=== PATIENT | female | born 1960 | race Caucasian/White ===

== ENCOUNTER 2017-08-29 08:31 | Emergency (ER) | payer BC ==
[~2017-08-29] VITALS: Ht 157.5 cm; Wt 86.5 kg
[~2017-08-29 08:31] MED LIST: ACET1TAB84 PO; ADVIN25/60 INH; ATEN-173 PO; ATV1 PO; CMD5 PO; DRON400T PO; LISI-787 PO; LVNIS80 SQ; NCDT21 TD; NTRGSL/4 UT; RXC5 PO
[2017-08-29 08:41] VITALS: TEMP 36.5; Ht 157.5 cm; Wt 86.5 kg
[2017-08-29] MEDS ORDERED: WARF3TAB PO (09:25)
[2017-08-29] MEDS ORDERED: OPTIRAY 320 IV PRN (09:30)
[2017-08-29 09:42] LABS: BASO % 0.2 %; BASO ABS # 0.01 K/uL (0-0.2); COMPLETE YES; EOS % 0.5 %; IG% 0.2 %; LYMPH % 22.4 %; LYMPH ABS # 1.25 K/uL (1.2-3.4); MEAN CELL VOLUME 89.3 fL (80-100); MEAN CORPUSCULAR HEMOGLOBIN 30.4 pg (25-34); MEAN PLATELET VOLUME 8.3 fL (7.4-10.4); MONO % 7.9 %; NEUT % 68.8 %; PLATELET COUNT 193 K/uL (130-400); RED BLOOD COUNT 4.48 M/uL (4.2-5.4); WHITE BLOOD COUNT 5.59 K/uL (4.8-10.8)
[2017-08-29 09:51] LABS: INR 2.9 (0.9-1.1); PARTIAL THROMBOPLASTIN RATIO 1.4; PROTHROMBIN TIME (PATIENT) 32.1 SECONDS (9.0-12.0)
[2017-08-29 09:59] LABS: BUN/CREATININE RATIO 16.2 (10-20); CALCIUM 9.1 mg/dl (8.5-10.1); CREATININE 0.67 mg/dl (0.60-1.20); POTASSIUM 4.5 mmol/L (3.5-5.1)
[2017-08-29] MEDS ORDERED: ACETAMINOPHEN IV 100 ML IV STA (10:55)
[2017-08-29 12:00] LABS: MANUAL MICROSCOPIC REQUIRED? NO; REVIEW REQ? NO; URINE APPEARANCE CLEAR (CLEAR); URINE BILIRUBIN NEG (NEG); URINE COLOR YELLOW; URINE NITRITE NEG (NEG); URINE SPECIFIC GRAVITY 1.009 (1.000-1.030); UROBILINOGEN NEG (NEG)
--- NOTE | 2017-08-29 12:34 | DIAGNOSTIC IMAGING REPORT ---
CT LUMBAR SPINE WITH CT DOSE: 632.40 mGycm CLINICAL HISTORY: Trauma. Hematoma. Back pain. Patient on Coumadin. History of prior lumbar disc surgery. TECHNIQUE: The patient was scanned in a dynamic helical fashion following administration 91 cc of Optiray 320. Sagittal and coronal reformatted images were acquired. A dose lowering technique was utilized adhering to the principles of ALARA. COMPARISON STUDY: None. FINDINGS: There are postsurgical changes of an L4-5 discectomy and interbody fusion. There are postlaminectomy changes. There are postsurgical changes of posterior spinal fusion with pedicle screws at the L4 and L5 levels. No acute fractures or traumatic subluxations are visualized. There is an L3-4 disc bulge with mild ligamentous hypertrophy and mild to moderate spinal stenosis. IMPRESSION: 1. No evidence of acute fracture or traumatic subluxation 2. Postsurgical changes at the L4-5 level 3. L3-4 disc bulge with mild to moderate spinal stenosis. Electronically signed by: Pancho Beyer M.D. 08/29/2017 12:31 PM Dictated Date/Time: 08/29/2017 12:20 PM
[2017-08-29 12:50] VITALS: O2SAT 99
--- NOTE | 2017-08-29 13:44 | EMERGENCY ROOM VISIT NOTE ---
History First contact with patient: 08:52 Chief Complaint: BACK PAIN Stated Complaint: LOWER BACK History of Present Illness The patient is a 56 year old female who presents to the Emergency Room with complaints of low back pain after falling down 4 steps this morning. She states that she slipped while going down the steps and landed directly on her lower back. She is concerned because she has a history of back surgery [address] Roberson, she reports "they replace of disks in my back." She states that she has had some intermittent tingling down her right leg and severe pain in her middle lower back the fall. She states she has been able to ambulate, but this greatly increases her pain. She describes the pain as constant, severe and grabbing, worse with movement, better with rest, 10/10. She states that she did not take any medications for the pain prior to arrival. She is on Coumadin for history of DVT and PE. She denies any numbness, weakness in the legs, saddle paresthesias, bowel or bladder dysfunction, abdominal pain, blood in her urine. She states she did not hit her head or lose consciousness, she denies any upper back or neck pain. Review of Systems A complete 10 point review of systems was reviewed with the patient with pertinent positives and negatives as per history of present illness. All else were negative. Past Medical/Surgical History Medical Problems: (1) Lumbar stenosis with neurogenic claudication (2) Pulmonary embolism Social History Smoking Status: Current Every Day Smoker Drug Use: none Marital Status: Housing Status: lives with family Current/Historical Medications Scheduled Atenolol (Tenormin), 1 TAB PO QAM Dronedarone Hcl (Multaq), 1 TAB PO BID Lisinopril/Hctz (Zestoretic 20MG/12.5MG), 1 TAB PO QAM Nitroglycerin (Nitrostat), 0.4 MG UT PRN Warfarin Sodium (Coumadin), 3 MG PO QPM Scheduled PRN Fluticasone Prop/Salmeterol (Advair Diskus 250/50 60 Dose), 1 PUFF INH TID PRN for uri symptoms Hydrocodone/Acetaminophen 5MG/325MG ([place] 5MG/325MG), 1 TAB PO Q6H PRN for Pain Allergies Coded Allergies: Penicillins (Verified Allergy, Unknown, HIVES, 04/23/16) Physical Exam Vital Signs Date Time Temp Pulse Resp B/P (MAP) Pulse Ox O2 Delivery O2 Flow Rate FiO2 08/29/17 14:56 62 18 142/74 98 Room Air 08/29/17 12:51 60 08/29/17 12:50 63 17 133/70 99 Room Air 08/29/17 12:50 99 Room Air 08/29/17 10:45 61 16 147/84 97 Room Air 08/29/17 08:41 36.5 65 20 180/89 96 Room Air Physical Exam CONSTITUTIONAL: No acute distress, but does appear to be in pain. Well appearing and well nourished. Alert and oriented X 4 with normal affect. HEENT: Normocephalic, atraumatic. Pupils equal, round and reactive to light, EOMI. TMs normal. Pharynx normal. NECK: Supple, full active range of motion without discomfort. RESPIRATORY: Clear to auscultation bilaterally with no wheezing, crackles, rhonchi or stridor. Equal expansion bilaterally. CARDIOVASCULAR: Regular rate and rhythm with no murmurs, rubs or gallops. Normal peripheral perfusion. No edema. GASTROINTESTINAL: Soft, nontender, nondistended. Bowel sounds present in all quadrants. BACK: There is midline tenderness of the entire lumbar spine, with bilateral paraspinous muscle tenderness to palpation. There are no step-offs or crepitus. No ecchymosis, abrasions, swelling to the lower back. MUSCULOSKELETAL: Full range of motion of all joints without discomfort. INTEGUMENTARY: No rash or other significant dermatologic conditions noted. NEUROLOGIC: Cranial nerves II-XII grossly intact. No focal neurologic deficits noted. Normal/equal reflexes bilaterally of the lower extremities. Normal strength, normal sensation, normal gait, normal balance. Medical Decision & Procedures ER Provider Diagnostic Interpretation: CT LUMBAR SPINE WITH CT DOSE: 632.40 mGycm CLINICAL HISTORY: Trauma. Hematoma. Back pain. Patient on Coumadin. History of prior lumbar disc surgery. TECHNIQUE: The patient was scanned in a dynamic helical fashion following administration 91 cc of Optiray 320. Sagittal and coronal reformatted images were acquired. A dose lowering technique was utilized adhering to the principles of ALARA. COMPARISON STUDY: None. FINDINGS: There are postsurgical changes of an L4-5 discectomy and interbody fusion. There are postlaminectomy changes. There are postsurgical changes of posterior spinal fusion with pedicle screws at the L4 and L5 levels. No acute fractures or traumatic subluxations are visualized. There is an L3-4 disc bulge with mild ligamentous hypertrophy and mild to moderate spinal stenosis. IMPRESSION: 1. No evidence of acute fracture or traumatic subluxation 2. Postsurgical changes at the L4-5 level 3. L3-4 disc bulge with mild to moderate spinal stenosis. Laboratory Results 08/29/17 09:30 Red Blood Count 4.48, Mean Corpuscular Volume 89.3, Mean Corpuscular Hemoglobin 30.4, Mean Corpuscular Hemoglobin Concent 34.0, Mean Platelet Volume 8.3, Neutrophils (%) (Auto) 68.8, Lymphocytes (%) (Auto) 22.4, Monocytes (%) (Auto) 7.9, Eosinophils (%) (Auto) 0.5, Basophils (%) (Auto) 0.2, Neutrophils # (Auto) 3.85, Lymphocytes # (Auto) 1.25, Monocytes # (Auto) 0.44, Eosinophils # (Auto) 0.03, Basophils # (Auto) 0.01 08/29/17 09:30 Test 08/29/17 09:27 08/29/17 09:30 08/29/17 11:50 Bedside Glucose 109 mg/dl (70-90) White Blood Count 5.59 K/uL (4.8-10.8) Red Blood Count 4.48 M/uL (4.2-5.4) Hemoglobin 13.6 g/dL (12.0-16.0) Hematocrit 40.0 % (37-47) Mean Corpuscular Volume 89.3 fL (80-100) Mean Corpuscular Hemoglobin 30.4 pg (25-34) Mean Corpuscular Hemoglobin Concent 34.0 g/dl (32-36) Platelet Count 193 K/uL (130-400) Mean Platelet Volume 8.3 fL (7.4-10.4) Neutrophils (%) (Auto) 68.8 % Lymphocytes (%) (Auto) 22.4 % Monocytes (%) (Auto) 7.9 % Eosinophils (%) (Auto) 0.5 % Basophils (%) (Auto) 0.2 % Neutrophils # (Auto) 3.85 K/uL (1.4-6.5) Lymphocytes # (Auto) 1.25 K/uL (1.2-3.4) Monocytes # (Auto) 0.44 K/uL (0.11-0.59) Eosinophils # (Auto) 0.03 K/uL (0-0.5) Basophils # (Auto) 0.01 K/uL (0-0.2) RDW Standard Deviation 45.3 fL (36.4-46.3) RDW Coefficient of Variation 13.8 % (11.5-14.5) Immature Granulocyte % (Auto) 0.2 % Immature Granulocyte # (Auto) 0.01 K/uL (0.00-0.02) Prothrombin Time 32.1 SECONDS (9.0-12.0) Prothromb Time International Ratio 2.9 (0.9-1.1) Activated Partial Thromboplast Time 35.9 SECONDS (21.0-31.0) Partial Thromboplastin Ratio 1.4 Anion Gap 5.0 mmol/L (3-11) Est Creatinine Clear Calc Drug Dose 95.7 ml/min Estimated GFR () 113.9 Estimated GFR (Non- 98.3 BUN/Creatinine Ratio 16.2 (10-20) Calcium Level 9.1 mg/dl (8.5-10.1) Urine Color YELLOW Urine Appearance CLEAR (CLEAR) Urine pH 7.0 (4.5-7.5) Urine Specific [place] 1.009 (1.000-1.030) Urine Protein NEG (NEG) Urine Glucose (UA) NEG (NEG) Urine Ketones NEG (NEG) Urine Occult Blood 2+ (NEG) Urine Nitrite NEG (NEG) Urine Bilirubin NEG (NEG) Urine Urobilinogen NEG (NEG) Urine Leukocyte Esterase NEG (NEG) Urine WBC (Auto) 0 /hpf (0-5) Urine RBC (Auto) 10-30 /hpf (0-4) Urine Hyaline Casts (Auto) 0 /lpf (0-5) Urine Epithelial Cells (Auto) 5-10 /lpf (0-5) Urine Bacteria (Auto) NEG (NEG) Medications Administered Medications (Trade) Dose Ordered Sig/Julia Route Start Time Stop Time Status Last Admin Dose Admin Acetaminophen 100 ml @ 400 mls/hr NOW STAT IV 08/29/17 10:55 08/29/17 11:09 DC 08/29/17 11:26 400 MLS/HR Acetaminophen/ Hydrocodone Bitart ([place] 5/325 Tab) 1 tab NOW STAT PO 08/29/17 15:05 08/29/17 15:13 DC 08/29/17 15:05 1 TAB Medical Decision CC: Patient presenting with complaint of back pain, fall Interpretation of Labs: No leukocytosis, no anemia, no significant electrolyte abnormalities, normal renal function, INR therapeutic. UA negative. Differential Diagnosis: Includes, but not limited to contusion, hematoma, abrasion, musculoskeletal sprain/strain, lumbar spine fracture, subluxation, disc herniation, among others. Medication Reconciliation: I attest that I have personally reviewed the patient' s current medication list. Vital signs review: I reviewed the patient's vital signs and interpret them as follows: T: Afebrile; BP: Hypertensive; HR: Within normal limits; RR: Within normal limits; Pulse Ox: Within normal limits on room air. Blood pressure screening: The patient was found to have an elevated blood pressure and was referred to their primary doctor for recheck and further treatment. Summary: Patient was evaluated at bedside, history of physical exam performed. Patient is alert and in no acute distress, but does appear to be in some pain especially with movement. Patient's neurologic exam is intact with no focal deficits. No weakness or sensory deficits noted in the lower extremities and no red flag symptoms concerning for cauda equina. There is midline tenderness of the lumbar spine and paraspinous muscle tenderness. Orders were placed at bedside for basic labs, urine dip, IV Tylenol for pain, CT lumbar spine with IV contrast to evaluate for trauma. Patient discussed with Dr. Beyer, who agrees with my assessment and plan. Labs reviewed as above, no significant abnormalities. CT imaging reveals no acute fracture or other acute injury, there is some mild disc bulging which may or may not be related to the patient's injury. The patient reports her pain is greatly improved after the Tylenol. I did encourage the patient to follow-up with her PCP or with her ortho-spine doctor, she verbalized understanding. I also instructed the patient on return precautions should her symptoms worsen, she verbalized understanding. Patient was discharged home in stable condition and ambulatory. [place] Drug Monitoring Program Search Results: patient reviewed within database, no issues identified Impression Primary Impression: Strain of lumbar region Additional Impression: Contusion of lower back Departure Information Dispostion Home / Self-Care Condition GOOD Prescriptions Hydrocodone/Acetaminophen 5MG/325MG ([place] 5MG/325MG) Tab 1 TAB PO Q6H Y for Pain, #6 TAB PRN PAIN Prov: Ketty Saeed, JOHN 08/29/17 Referrals Alejandro Maradiaga M.D. (PCP) Patient Instructions ED Exercises Lumbar Muscles, ED Low Back Pain Injury, [facility] Additional Instructions Take it easy for the next few days, no strenuous activity, heavy lifting, or bending/twisting motions, to allow your back to rest. Apply ice to the lower back for the next 2-3 days, after that you may apply heat to the area. After heat, you may do gentle stretching and massage to the low back. Mobic as prescribed once a day for the next two weeks to treat your pain and inflammation in your back. Do not take other NSAIDs while you are taking this medication. Valium muscle relaxer as prescribed, as needed for muscle tightness and spasms. This may make you drowsy. Do not drive or drink alcohol while taking. Follow up with your PCP in the next few days for further management. You may benefit from physical therapy. Please return to the ER if any problems with bowel or bladder function, numbness in your groin, high fevers, severe abdominal pain or worsening back pain, or if loss of feeling/movement of legs. Work Instructions Return To Work: 2 days Problem Qualifiers Primary Impression: Strain of lumbar region Encounter type: initial encounter Qualified Codes: S39.012A - Strain of muscle, fascia and tendon of lower back, initial encounter Additional Impression: Contusion of lower back Encounter type: initial encounter Qualified Codes: S30.0XXA - Contusion of lower back and pelvis, initial encounter
[2017-08-29] MEDS ORDERED: HYDR-5688 PO (14:53)
[2017-08-29 14:56] VITALS: BP 142/74; PULSE 62; O2SAT 98
[2017-08-29] MEDS ORDERED: HYDROCODONE/ACETAMOPHEN 5/325MG TAB PO STA (15:05)
== END 2017-08-29 15:10 | disposition home or self-care (01) ==
LOC: C.EDB 08:32 → C.EDA 15:10
DX: S39.012A Strain of muscle, fascia and tendon of lower back, initial encounter (principal); S30.0XXA Contusion of lower back and pelvis, initial encounter; W10.9XXA Fall (on) (from) unspecified stairs and steps, initial encounter; M51.26 Other intervertebral disc displacement, lumbar region; M48.06 Spinal stenosis, lumbar region; F17.200 Nicotine dependence, unspecified, uncomplicated; Z86.718 Personal history of other venous thrombosis and embolism; Z86.711 Personal history of pulmonary embolism; Z79.01 Long term (current) use of anticoagulants

== ENCOUNTER 2021-06-20 09:53 | Inpatient (IN) ==
--- NOTE | 2021-06-01 09:50 | PAT Medication Instructions ---
Medication Instructions Date of Service June 01, 2021 Home Medications acetaminophen [Tylenol Arthritis] 1,300 mg PO Q12H PRN albuterol sulfate 2 puff INHALATION Q6H PRN aspirin [Aspir-81] 81 mg PO QAM dronedarone [Multaq] 400 mg PO BID losartan 50 mg PO QAM metoprolol succinate [Toprol XL] 12.5 mg PO QAM nitroglycerin [Nitrostat] 0.4 mg SUBLINGUAL umeclidinium-vilanterol [Anoro Ellipta] 1 inh INHALATION HS warfarin [Jantoven] 3 - 4.5 mg PO UD Continue as directed nitroglycerin [Nitrostat] 0.4 mg SUBLINGUAL (if needed) ASK your prescriber and surgeon warfarin [Jantoven] 3 - 4.5 mg PO UD aspirin [Aspir-81] 81 mg PO QAM DO NOT take the morning of surgery losartan 50 mg PO QAM Take morning of surgery With a small sip of water, OTHERWISE NOTHING TO EAT OR DRINK AFTER MIDNIGHT: acetaminophen [Tylenol Arthritis] 1,300 mg PO Q12H PRN (okay to take up to 4 hours prior to surgery if needed) albuterol sulfate 2 puff INHALATION Q6H PRN (use if needed; please bring rescue inhaler with you to hospital day of surgery if possible) dronedarone [Multaq] 400 mg PO BID metoprolol succinate [Toprol XL] 12.5 mg PO QAM Take evening before surgery acetaminophen [Tylenol Arthritis] 1,300 mg PO Q12H PRN (if needed) albuterol sulfate 2 puff INHALATION Q6H PRN (if needed) dronedarone [Multaq] 400 mg PO BID umeclidinium-vilanterol [Anoro Ellipta] 1 inh INHALATION HS Other Notes If you have any questions please call us at [phone] or [phone] or [phone] or [phone]
--- NOTE | 2021-06-06 15:48 | Anesthesiology Consultation ---
Date of Service June 06, 2021 Assessment & Plan (1) Encounter for pre-operative examination: - COVID screening: Per assessment on 06/06: Travel screen negative, no known COVID-19 positive contacts or current COVID-19 related symptoms. Patient vaccinated. Surgeon arranging preop COVID testing. Awaiting results. - Cardiology office visit (03/14/21): "She has been doing well from a cardiac standpoint. she reports functional class II shortness of breath and fatigue.. Continue current medications." F/U 6 months recommended. - Check coags AM DOS (warfarin instructions per surgeon/prescriber) Chart Review Chart Review: Acceptable Risk for Surgery (pending preop testing (labs, EKG, CXR)) and Patient seen in Pre Admission Testing Teaching & Discussion Pre-Anesthesia Teaching/Discussion Notes: Instructed NPO after midnight before surgery,except medications with 15 cc of water. Medication instructions provided according to the PAT guidelines. History Surgery Operation Date: 06/20/21 10:35 Proposed Procedures p L2-L4 Decompression Fusion, L4-L5 Hardware Removal, Spinal Cord Monitoring - Otoniel Roberson DO Height/Weight Height: 5 ft 2 in Weight: 89.4 kg Allergies Allergy/AdvReac Type Severity Reaction Status Date / Time Penicillins Allergy Unknown Hives Verified 06/05/21 08:46 Medications Home Medications Medication Instructions Recorded Confirmed Last Taken acetaminophen [Tylenol Arthritis] 1,300 mg PO Q12H PRN 05/31/21 05/31/21 Unknown albuterol sulfate 2 puff INHALATION Q6H PRN 05/31/21 05/31/21 Unknown aspirin [Aspir-81] 81 mg PO QAM 05/31/21 05/31/21 Unknown dronedarone [Multaq] 400 mg PO BID 05/31/21 05/31/21 Unknown losartan 50 mg PO QAM 05/31/21 05/31/21 Unknown metoprolol succinate [Toprol XL] 12.5 mg PO QAM 05/31/21 05/31/21 Unknown nitroglycerin [Nitrostat] 0.4 mg SUBLINGUAL 05/31/21 Unknown umeclidinium-vilanterol [Anoro 1 inh INHALATION HS 05/31/21 05/31/21 Unknown Ellipta] warfarin [Jantoven] 3 - 4.5 mg PO UD 05/31/21 05/31/21 Unknown Past Medical History Medical History CAD (coronary artery disease) 2006 (stent x1), 2008 (stent x1) Cancer Skin (SCC) Chronic back pain Radiation to b/l hips/legs Chronic obstructive pulmonary disease DVT (deep venous thrombosis) 2016 Mild aortic stenosis Mild aortic stenosis (BETTY 1.47 cm, MG 10 mmHg) per 07/2020 echo Myocardial Infarction 2006, Follows with Dr. Hirsch Obesity Pulmonary embolism Post-op back surgery (2016), on warfarin since Exercise / Class Metabolic Activity II 4-5 Yardwork/Stairs/Walk up hill (one FS (no CP, no SOB)) Past Family History Family History Mother Family history of diabetes mellitus Past Surgical History Surgical History Fusion of spine 2015 History of cardiac cath 2006 (stent x1), 2008 (stent x1), 2014 (no stents), 2017 (no stents) History of section History of hysterectomy + USO History of laparoscopy Multiple (for endometriosis) History of neck surgery x2 Past Anesthesia History No Hx of Anesthesia Complications and No Family Hx of Anesthesia Complications History of PONV No Hx of PONV and No Hx of Motion Sickness Social History Smoking Status: Current every day smoker Smoking cigarettes per day: 10 cigs/day Do You Dip or Chew Tobacco: No Hx Alcohol Use: No Hx Substance Use: No Review of Systems Patient denies chest pain, shortness of breath, dyspnea on exertion, fever, chills, cough, wheezing, palpitations. Physical Exam Vital Signs VITALS BP 147/84 P 84 TEMP 97.9 SP02 97%RA RESP 16 PHYSICAL Mildly decreased cervical extension range of motion. Full TMJ range of motion. TMD 3 finger breaths Mallampati Score 2 Dentition: 2 missing molars Lungs: clear throughout to auscultation Cardiac: regular rate and rhythm, II/ systolic murmur Spine: normal Carotid arteries: negative bruit Extremities: no edema Testing Echocardiogram Date: 07/21/20 EF EF 55%. Moderate RVD. Mild LAD. Moderate RAD. Mild aortic stenosis (BETTY 1.47 cm, MG 10 mmHg). Mild to moderate MR. Moderate TR. Moderately increased PASP. Physiologic MS. Cardiac Catheterization Date: 02/24/18 Coronary artery disease with patent stents in the left circumflex coronary artery and right coronary artery. 50% stenosis of the ostium of the very small AV groove branch. Elevated LVEDP. Normal LV ejection fraction. No gradient across the aortic valve by pullback technique. Medical management and risk factor modification recommended.
[~2021-06-20 09:53] MED LIST changes: -ACET1TAB84 PO; +ACETAMINOPHEN 500 MG TAB PO SCH; -ADVIN25/60 INH; -ATEN-173 PO; -ATV1 PO; +CLINDAMYCIN 600 MG/54 ML BAG IV SCH; -CMD5 PO; +CeleBREX 200 MG CAP PO SCH; -DRON400T PO; +GABAPENTIN 600 MG DOSE PO SCH; -LISI-787 PO; +LR 15ML/HR IV SCH; -LVNIS80 SQ; -NCDT21 TD; -NTRGSL/4 UT; -RXC5 PO
[2021-06-20] MEDS ORDERED: ROCURONIUM BROMIDE 10 MG/ML 5 ML VIAL IV ONE (10:22)
[2021-06-20] MEDS ORDERED: MIDAZOLAM HCL 1 MG/ML 2ML VIAL ONE (10:22)
[2021-06-20] MEDS ORDERED: PROPOFOL IV EMULSION 10 MG/ML 20 ML VIAL IV ONE (10:22)
[2021-06-20] MEDS ORDERED: LIDOCAINE 2% 2 ML VIAL/AMP(20MG/ML) INFIL ONE (10:22)
[2021-06-20] MEDS ORDERED: fentaNYL citrate 100 MCG/2 ML VIAL ONE (10:22)
[2021-06-20 10:34] LABS: Partial Thromboplastin Ratio 0.9; Partial Thromboplastin Time 24.9 Seconds (21.0-31.0); Prothrombin Time 10.2 Seconds (9.0-12.0)
[2021-06-20] MEDS ORDERED: ATROPINE SULFATE 0.1 MG/ML 10ML SYR IV PRN (11:39)
[2021-06-20] MEDS ORDERED: fentaNYL citrate 100 MCG/2 ML VIAL IV PRN (11:39)
[2021-06-20] MEDS ORDERED: ONDANSETRON INJ 2 MG/ML 2 ML VIAL IV PRN ×2 (11:39→16:02)
[2021-06-20] MEDS ORDERED: ePHEDrine sulfate 50 MG/ML AMP IV PRN (11:39)
[2021-06-20] MEDS ORDERED: HYDROmorphone INJ 2 MG/ML SYR/VIAL IV PRN (11:39)
--- NOTE | 2021-06-20 11:48 | History & Physical Bridge Note ---
Date of Service June 20, 2021 History & Physical Bridge Note I have examined the patient, reviewed the History & Physical and in the interval since the performance of the History & Physical I have noted the following changes of clinical significance: no changes noted
--- NOTE | 2021-06-20 11:49 | History & Physical Report ---
Date of Service June 20, 2021 Assessment & Plan (1) Lumbar stenosis with neurogenic claudication: Plan: L2-L4 decompression fusion, L4-L5 hardware removal History of Present Illness Chief Complaint: Back and leg pain Primary Care Provider: Alejandro Terrazasmaki 6-year-old female known to me the presents with a cough persistent back and leg pain. Failing course of nonoperative care is here for surgical invention. Allergies Allergy/AdvReac Type Severity Reaction Status Date / Time Penicillins Allergy Unknown Hives Verified 06/05/21 08:46 Home Medications Medication Instructions Recorded Confirmed Type acetaminophen 650 mg 1,300 mg PO Q12H PRN 05/31/21 06/20/21 History tablet,extended release albuterol sulfate 90 mcg/actuation 2 puff INHALATION Q6H PRN 05/31/21 06/20/21 History aerosol inhaler aspirin 81 mg tablet,delayed 81 mg PO QAM 05/31/21 06/20/21 History release dronedarone 400 mg tablet (Multaq) 400 mg PO BID 05/31/21 06/20/21 History losartan 50 mg tablet 50 mg PO QAM 05/31/21 06/20/21 History metoprolol succinate 25 mg 12.5 mg PO QAM 05/31/21 06/20/21 History tablet,extended release 24 hr (Toprol XL) nitroglycerin 0.4 mg sublingual 0.4 mg SUBLINGUAL UNKNOWN 05/31/21 06/20/21 History tablet (Nitrostat) umeclidinium 62.5 mcg-vilanterol 1 inh INHALATION HS 05/31/21 06/20/21 History 25 mcg/actuation powdr for inhalation (Anoro Ellipta) warfarin 3 mg tablet (Jantoven) 3 - 4.5 mg PO UD 05/31/21 06/20/21 History Past Med/Surg History Medical History CAD (coronary artery disease) 2006 (stent x1), 2008 (stent x1) Cancer Skin (SCC) Chronic back pain Radiation to b/l hips/legs Chronic obstructive pulmonary disease DVT (deep venous thrombosis) 2015 Mild aortic stenosis Mild aortic stenosis (BETTY 1.47 cm, MG 10 mmHg) per 07/2020 echo Myocardial Infarction 2006, Follows with Dr. Hirsch Obesity Pulmonary embolism Post-op back surgery (2016), on warfarin since Surgical History Fusion of spine 2016 History of cardiac cath 2006 (stent x1), 2008 (stent x1), 2014 (no stents), 2018 (no stents) History of section History of hysterectomy + USO History of laparoscopy Multiple (for endometriosis) History of neck surgery x2 Family History Mother Family history of diabetes mellitus Social History (Updated 05/31/21 @ 14:15 by Brina Hope, RN) Smoking Status: Current every day smoker Cigarettes Per Day: 10 cigs/day; Second Hand Exposure: Yes (SPOUSE SMOKES); Do You Dip or Chew Tobacco: No; Hx Alcohol Use: No Hx Substance Use: No Preferred Language: Greenlandic Communication Ability: Effective Sight Effects Specialist Required: No Beliefs That Will Affect Care: None Current Living Situation: Spouse current occupational status: employed current occupation: [employer] Other Information That Helps Us Care for You: No Feels Safe at Home: Yes Safety Concerns: Feels Safe At This Time Assistive Devices: Glasses Physical Exam Physical Exam: Patient is alert and oriented Heart regular rhythm Lungs clear to auscultation Results & Data ([facility]) Vital Signs (Past 12 Hours) Vital Signs Temp Pulse Resp BP Pulse Ox 06/20/21 10:21 36.7 C 69 18 138/72 97
[2021-06-20] MEDS ORDERED: BUPIVACAINE/EPINEPHRINE 0.5% MPF 1:200,000 30 ML VIAL ONE (12:10)
[2021-06-20] MEDS ORDERED: ONDANSETRON INJ 2 MG/ML 2 ML VIAL ONE (12:54)
[2021-06-20] MEDS ORDERED: DEXAMETHASONE SOD INJ 4 MG/ML VIAL ONE (12:54)
[2021-06-20] MEDS ORDERED: HYDROmorphone INJ 2 MG/ML SYR/VIAL ONE (12:55)
[2021-06-20] MEDS ORDERED: FLOSEAL HEMOSTATIC MATRIX 10ML TOP ONE (13:20)
[2021-06-20] MEDS ORDERED: PHENYLEPHRINE 100MCG/ML 5ML SYR ONE (13:33)
[2021-06-20] MEDS ORDERED: ePHEDrine sulfate 50 MG/ML AMP ONE (13:33)
[2021-06-20] MEDS ORDERED: GLYCOPYRROLATE 0.2 MG/ML VIAL ONE (14:16)
[2021-06-20] MEDS ORDERED: NEOSTIGMINE METHYLSULFATE 1 MG/ML 10ML VIAL ONE (14:16)
--- NOTE | 2021-06-20 14:22 | Operative Report ---
Post Operative Report Pre & Post Diagnosis Operation Date: 06/20/21 11:35 Pre-Op Diagnosis: Lumbar stenosis with neurogenic claudication Post-Op Diagnosis: Lumbar stenosis with neurogenic claudication I identified the patient and participated in the time-out.: Yes Procedure Operation Date: 06/20/21 11:35 Actual Procedures #1 removal of posterior instrumentation L4-5 per #2 exploration of fusion L4-5. #3 lumbar decompression with bilateral medial facetectomies and foraminotomies L2-3 and L3-4. #4 posterior spinal fusion L2-3 L3-4. #5 posterior instr umentation L2-3 L3-4. #6 interbody fusion L3-L4. #7 placement peek cage 12 x 22 mm at L3-L4. #8 placement locally harvested morselized autograft in the posterior lateral gutters. #9 placement infuse collagen sponge, master graft in the posterior lateral gutters and I factor in the interbody space. Surgeon Otoniel Roberson, Reserve Operator Lexie Ramos Estimated Blood Loss 250 Findings See Below The patient is 5 foot 2 weighing over 87 kg with a BMI in excess of 35. Patient brought habitus did contribute to significant technical difficulty requiring her deepest retractors and longest instruments in order to perform her procedure. This added at least 50% increase the operative time. Specimens None Indications This is a 6-year-old female [facility] above-mentioned diagnosis after failing course of nonoperative care she is here for the above- mentioned procedure. Description of Procedure Patient was met with identified informed consent obtained. Patient was then taken to the operative suite underwent a patient placed in prone position the [place] table top Dani frame. All bony prominences well-padded eyes inspected to ensure no external pressure placed upon the. This point lumbar spine was prepped and draped in a sterile fashion. Sharp dissection with the assistance of Bovie cautery performed down to and exposing the lamina and transverse processes of L2-L3-and the instrumentation at L4-L5 bilaterally. Then proceeded to move the hardware bilaterally at L4-L5 explore the fusion mass noting it to be mature and intact. Then performed a complete laminectomy of L2-3 and L2 from a caudal cephalad fashion including bilateral medial facetectomies and foraminot omies addressing severe spinal stenosis. Pedicle screws were then placed in L2-L3-L4 bilaterally with assistance of fluoroscopy and the proper sized mihir placed. By way of a transforaminal approach on the right a complete discectomy was performed endplates curetted to subcortical being bone and a 12 x 22 mm cage filled with I factor tapped in position. The rods and locked in final position bilaterally. The transverse processes of L2-L3-L4 burred to subcortically bone. Infuse collagen sponge master graft and local autograft was placed in the posterior gutters. 15 round JONH drain inserted. Incision was then closed with 1 Vicryl the fascia 2-0 Vicryl subcutaneously and 4 Monocryl for final skin closure. Steri-Strip sterile dressings placed. Patient was then taken to PACU stable condition. Please note spinal cord monitoring was utilized at the procedure no changes noted. Lastly Lexie Ramos was present at the entire surgery involved the patient positioning complex portions of the surgery and final skin closure. I attest to the content of the Intraoperative Record and any orders documented therein. Any exceptions are noted below.
--- NOTE | 2021-06-20 14:37 | Fluoroscopy Report ---
FL lumbar spine 2-3V CLINICAL HISTORY: L2-L4 DECOMPRESSION FUSION, L4-L5 HARDWARE REMOVAL COMPARISON STUDY: 04/23/2016 FLUOROSCOPY TIME: 18 seconds. NUMBER OF FLUOROSCOPIC IMAGES: 2 FINDINGS: 2 intraoperative fluoroscopic spot images are provided for interpretation. There is evidenc e for a prior L4-5 discectomy and interbody fusion. There is now evidence for an L3-4 discectomy and interbody fusion. The L5 pedicle screws have been removed. There are L2, L3, and L4 pedicle screws wi th adjoining spinal rods. On the AP view, there is evidence for surgical sponge at the operative site . The technologist notes that the surgeon is aware of this. IMPRESSION: 1. Intraoperative fluoroscopic spot images demonstrating an L2-4 spinal decompression and fusion ACT 112: Negative or not required by law. Electronically signed by: Pancho Beyer M.D. 06/20/2021 2:36 PM
--- NOTE | 2021-06-20 15:10 | Anesthesiology Progress Note ---
Date of Service June 20, 2021 Anesthesia Post Procedure Vital Signs Vital Signs: Temp Pulse Pulse Resp BP BP Pulse Ox 06/20/21 15:05 36.6 C 68 14 124/67 95 06/20/21 14:55 68 12 114/64 95 06/20/21 14:45 78 14 119/76 95 06/20/21 14:39 36.6 C 92 H 14 145/65 H 98 06/20/21 10:21 36.7 C 69 18 138/72 97 Pain Intensity Lower Back: Pain Intensity: 8 Transfer of Care Handoff Completed per policy Notes Mental Status: alert / awake / arousable and participated in evaluation Patient Amnestic to Procedure: Yes Nausea / Vomiting: adequately controlled Pain: adequately controlled Airway Patency, RR, SpO2: stable & adequate BP & HR: stable & adequate Hydration State: stable & adequate Anesthetic Complications: no major complications apparent and Pt Satisfied with anesthetic care
[2021-06-20] MEDS ORDERED: NALOXONE HCL 0.4 MG/1 ML VIAL/CARP IV PRN (16:02)
[2021-06-20] MEDS ORDERED: MAGNESIUM HYDROXIDE SUSP 30 ML UDC PO PRN (16:02)
[2021-06-20] MEDS ORDERED: LORazepam 0.5 MG TAB PO PRN (16:02)
[2021-06-20] MEDS ORDERED: LORazepam 0.5 MG/1 ML VIAL IV PRN (16:02)
[2021-06-20] MEDS ORDERED: NITROGLYCERIN SL 0.4 MG/TAB TAB SL PRN (16:02)
[2021-06-20] MEDS ORDERED: hydrOXYzine HCl 25 MG TAB PO PRN (16:02)
[2021-06-20] MEDS ORDERED: ACETAMINOPHEN 500 MG TAB PO PRN (16:02)
[2021-06-20] MEDS ORDERED: ALUMINUM/MAGNESIUM SUSP 30 ML UDC PO PRN (16:02)
[2021-06-20] MEDS ORDERED: HYDROmorphone INJ 1 MG/ML SYRINGE IV PRN (16:02)
[2021-06-20] MEDS ORDERED: ONDANSETRON 4 MG OD TAB PO PRN (16:02)
[2021-06-20] MEDS ORDERED: FAMOTIDINE 20 MG TAB PO PRN (16:02)
[2021-06-20] MEDS ORDERED: ACETAMINOPHEN 1,000 MG/100 ML VIAL IV PRN (16:02)
[2021-06-20] MEDS ORDERED: DO NOT ADMINISTER PNEUMOCOCCAL VACCINE PRN (16:02)
[2021-06-20] MEDS ORDERED: DO NOT ADMINISTER FLU VACCINE PRN (16:02)
[2021-06-20] MEDS ORDERED: PROMETHAZINE HCL 12.5 MG in SODIUM CHLORIDE 0.9% 50 ML IV PRN (16:02)
[2021-06-20] MEDS ORDERED: METOCLOPRAMIDE HCL INJ 5 MG/ML 2 ML VIAL IV PRN (16:02)
[2021-06-20] MEDS ORDERED: SOD PHOSPHATE/SOD BIPHOSPHATE ENEMA 132 ML BTL PR PRN (16:02)
[2021-06-20] MEDS ORDERED: diphenhydrAMINE Capsule 25 MG CAP PO PRN (16:02)
[2021-06-20] MEDS ORDERED: traMADol HCL 50 MG TABLET PO PRN (16:02)
[2021-06-20] MEDS ORDERED: HYDROmorphone INJ 0.5 MG/0.5 ML SYR IV PRN (16:02)
[2021-06-20] MEDS ORDERED: ALBUTEROL HFA 8 GM INHALER INH PRN (16:02)
[2021-06-20] MEDS: SODIUM CHLORIDE 0.9% 1000ML 1,000 ML IV SCH (17:23)
--- NOTE | 2021-06-20 17:30 | Hospitalist Consultation ---
Date of Consultation June 20, 2021 Assessment & Plan (1) Lumbar stenosis with neurogenic claudication: - Pain management, bowel regimen and DVT ppx per the primary team - PT/OT consults - Follow am CBC to monitor for acute blood loss - Holding coumadin (2) CAD (coronary artery disease): - S/p cardiac stenting, continue asa 81 mg daily, metoprolol succinate 12.5 mg daily, losartan 50 mg daily (3) Mild aortic stenosis: - Chronic, stable (4) Chronic obstructive pulmonary disease: - Continue Anoro Ellipta, albuterol prn - Encourage smoking cessation (5) Pulmonary embolism: - Hx of such following previous back surgery. Also with hx of DVT. Pt reports family with genetic clotting disorder but cannot confirm what it is. Reports needs for being on life long anticoagulation. She denies being formally tested for genetic clotting disorder. - Continue coumadin once ok from primary team standpoint. (6) Tobacco use: - Cessation encouraged. Pt brought home nicotine lozenges from home. Will ask pharmacy to verify and then can use prn for smoking cessation. Pt currently smokes 1/2 ppd, down from 1.5 ppd. (7) Obesity: - BMI of 35.4, encourage diet and exercise. DVT ppx: - teds, scds, baby aspirin CODE: Full code Dispo: From home, likely to remain in the hospital x 1-2 days Supervising Physician Co-Signing Physician Notes Attending addendum: The patient was seen and examined in medical floor She is a status post lumbar decompression fusion Complains of some pain and drowsiness from the medication Denies any other significant symptoms On examination Lying in bed comfortably. Hemodynamically stable Chestclear to auscultate bilaterally HeartS1-S2, 2/6 ESM over precordium Abdomenbenign CNSalert, awake and oriented x3 Extremitiesnegative for any edema Her preop labs and imaging studies reviewed Remains medically stable status post lumbar decompression fusion Her other medical condition remains stable Agree with assessment and plan as outlined above by Yuliana Hopkins History of Present Illness Reason for Consultation: Medical management Requesting Physician: Dr. Roberson Attending Physician: Otoniel Roberson, DO History of Present Illness This is a 60 yo F with PMhx of CAD with stents placed in 2006 and in 2008, COPD, DVT, mild aortic stnosis, VT in 2006, obesity with BMI of 35.4, and PE s/p back surgery in 2016 on chronic coumadin who presents for elective L4-L5 hardware removal and fusion, lumbar decompression with bilateral medial facetectomies and foraminotomies L2-3 and L3-L4 by Dr. Roberson on 06/20/21. Pt is doing well, her pain is moderate. She would like to eat dinner before taking any pain medication, so it doesn't upset her stomach. Last BM was today. She has tolerated liquids without difficulty. Pt notes having PE/DVT occur after her last back surgery 5 years ago, and is on coumadin because family has genetic disorder for clotting, although she has never been tested for such. Pt has coleen yarn at bedside to help keep stress level low. She denies any other acute complaints. Lives at home with . They are both attempting to quit smoking; pt has cut down to 1/2 ppd. Nicotine lozenges are at bedside and pt is requesting to use these during her stay here. Allergies Allergy/AdvReac Type Severity Reaction Status Date / Time Penicillins Allergy Unknown Hives Verified 06/05/21 08:46 Home Medications Medication Instructions Recorded Confirmed Type acetaminophen 650 mg 1,300 mg PO Q12H PRN 05/31/21 06/20/21 History tablet,extended release albuterol sulfate 90 mcg/actuation 2 puff INHALATION Q6H PRN 05/31/21 06/20/21 History aerosol inhaler aspirin 81 mg tablet,delayed 81 mg PO QAM 05/31/21 06/20/21 History release dronedarone 400 mg tablet (Multaq) 400 mg PO BID 05/31/21 06/20/21 History losartan 50 mg tablet 50 mg PO QAM 05/31/21 06/20/21 History metoprolol succinate 25 mg 12.5 mg PO QAM 05/31/21 06/20/21 History tablet,extended release 24 hr (Toprol XL) nitroglycerin 0.4 mg sublingual 0.4 mg SUBLINGUAL UNKNOWN 05/31/21 06/20/21 History tablet (Nitrostat) umeclidinium 62.5 mcg-vilanterol 1 inh INHALATION HS 05/31/21 06/20/21 History 25 mcg/actuation powdr for inhalation (Anoro Ellipta) warfarin 3 mg tablet (Jantoven) 3 - 4.5 mg PO UD 05/31/21 06/20/21 History Patient History Medical History (Updated 06/20/21 @ 17:35 by Yuliana Wright PA-C) CAD (coronary artery disease) 2006 (stent x1), 2008 (stent x1) Cancer Skin (SCC) Chronic back pain Radiation to b/l hips/legs Chronic obstructive pulmonary disease DVT (deep venous thrombosis) 2015 Mild aortic stenosis Mild aortic stenosis (BETTY 1.47 cm, MG 10 mmHg) per 07/2020 echo Myocardial Infarction 2006, Follows with Dr. Hirsch Obesity Pulmonary embolism Post-op back surgery (2015), on warfarin since Surgical History Fusion of spine 2015 History of cardiac cath 2006 (stent x1), 2008 (stent x1), 2014 (no stents), 2017 (no stents) History of section History of hysterectomy + USO History of laparoscopy Multiple (for endometriosis) History of neck surgery x2 Family History Mother Family history of diabetes mellitus Social History (Updated 05/31/21 @ 14:15 by Brina Hope RN) Smoking Status: Current every day smoker Cigarettes Per Day: 10 cigs/day; Second Hand Exposure: Yes (SPOUSE SMOKES); Do You Dip or Chew Tobacco: No; Hx Alcohol Use: No Hx Substance Use: No Preferred Language: Swiss Communication Ability: Effective Hand Bunch Maker Required: No Beliefs That Will Affect Care: None Current Living Situation: Spouse current occupational status: employed current occupation: [employer] Other Information That Helps Us Care for You: No Feels Safe at Home: Yes Safety Concerns: Feels Safe At This Time Assistive Devices: Glasses Review of Systems Review of Systems: Constitutional: No fever, sweats or chills Eyes: No diplopia, no worsening or blurred vision ENT: normal hearing, no trouble swallowing Respiratory: No cough, sputum, dyspnea at rest or on exertion Cardiovascular: No chest pain, tightness or palpitations Abdomen: No pain, nausea, vomiting, diarrhea or constipation Back: pain is mild, no numbness or tingling. Musculoskeletal: No joint pain, calf pain, swelling Neurologic: No weakness, numbness/tingling, or balance problems Psychiatric: No anxiety or depression Skin: No rash or itch Physical Exam Physical Exam: General: awake, alert, no apparent distress, obese, sitting up at edge of bed Head: Normocephalic, atraumatic ENT: PERRL, EOMI, no pharyngeal exudate, mucous membranes moist Chest: Clear to auscultation, on room air, no adventitious breath sounds Cardiac: Regular rate and rhythm, no murmur, no JVD, normal peripheral pulses, good capillary refill Abdominal: NABS x 4 quadrants, soft, nondistended, nontender to palpation, no rebound or guarding Back: Dressing c/d/i, JONH drain in place. : latif cath in place draining clear yellow urine Extremities: Normal inspection, no peripheral edema or erythema, calfs nontender to palpation Psych: Normal mood and affect Neuro: AAO x 3, strength intact bilaterally and rated 5/5, no motor deficits, speech is clear, no peripheral sensory deficits Results & Data Results & Data ([facility]) Vital Signs (Past 12 Hours) Vital Signs Temp Pulse Pulse Resp BP BP Pulse Ox 06/20/21 16:45 36.6 C 76 16 121/72 95 06/20/21 15:30 70 14 116/65 94 06/20/21 15:15 85 16 102/68 96 06/20/21 15:05 36.6 C 68 14 124/67 95 06/20/21 14:55 68 12 114/64 95 06/20/21 14:45 78 14 119/76 95 06/20/21 14:39 36.6 C 92 H 14 145/65 H 98 06/20/21 10:21 36.7 C 69 18 138/72 97
[2021-06-20] MEDS: DOCUSATE SODIUM/SENNA 50/8.6MG TAB PO SCH (20:18)
[2021-06-20] MEDS: UMECLIDINIUM/VILANTEROL 62.5/25MCG 7 PUFFS/INHALER INH SCH (20:18)
[2021-06-20] MEDS: DRONEDARONE HCL 400 MG TAB PO SCH (20:18)
[2021-06-20] MEDS: CLINDAMYCIN 600 MG in DEXTROSE 5% 50 ML IV SCH (20:21)
[2021-06-20] MEDS: oxyCODONE HCL IR 5 MG TAB (IMMEDIATE RELEASE) PO PRN (20:21)
[2021-06-21] MEDS: CLINDAMYCIN 600 MG in DEXTROSE 5% 50 ML IV SCH (03:03)
[2021-06-21] MEDS: POLYETHYLENE (MIRALAX) 17 GM PACK PO SCH ×3 (06:13→17:55)
[2021-06-21 07:24] LABS: Basophils # (auto) 0.01 K/uL (0-0.2); Basophils % (auto) 0.1 %; Hematocrit (blood only) 34.6 % (37-47); Hemoglobin 11.6 g/dL (12.0-16.0); Immature Granulocytes # (auto) 0.02 K/uL (0.00-0.02); Immature Granulocytes % (auto) 0.2 %; Lymphocytes # (auto) 1.15 K/uL (1.2-3.4); Lymphocytes % (auto) 10.8 %; Mean Corpuscular Hemoglobin 30.9 pg (25-34); Mean Corpuscular Hgb Conc 33.5 g/dL (32-36); Mean Platelet Volume 8.5 fL (7.4-10.4); Monocytes # (auto) 0.77 K/uL (0.11-0.59); Monocytes % (auto) 7.2 %; Neutrophils % (auto) 81.7 %; Platelet Count 198 K/uL (130-400); RDW Coefficient of Variation 13.4 % (11.5-14.5); RDW Standard Deviation 44.6 fL (36.4-46.3); Red Blood Count 3.76 M/uL (4.2-5.4); White Blood Count 10.65 K/uL (4.8-10.8)
[2021-06-21 08:01] LABS: BUN Creatinine Ratio 19.2 (10-20); Calcium 8.6 mg/dl (8.5-10.1); Creatinine Clr Calc Pharmacy 93.3 ml/min; Est GFR (African American) 111.3 ml/min; Potassium 4.8 mmol/L (3.5-5.1)
[2021-06-21] MEDS: oxyCODONE HCL IR 5 MG TAB (IMMEDIATE RELEASE) PO PRN ×2 (10:03→20:03)
[2021-06-21] MEDS: ASPIRIN 81 MG ECTAB PO SCH (10:05)
[2021-06-21] MEDS: LOSARTAN POTASSIUM 50 MG TAB PO SCH (10:05)
[2021-06-21] MEDS: DRONEDARONE HCL 400 MG TAB PO SCH ×2 (10:05→20:03)
[2021-06-21] MEDS: METOPROLOL SUCC 25MG EXT REL TAB PO SCH (10:05)
--- NOTE | 2021-06-21 10:22 | Orthopedic Progress Note ---
Date of Service June 21, 2021 Assessment & Plan (1) Lumbar stenosis with neurogenic claudication: Admission and Anticipated Discharge Date Admission Date: June 20, 2021 Subjective Back pain controlled leg pain improved Physical Exam Physical Exam: Patient is seen with this at the bed. She has good strength testing. Appears comfortable. Results & Data ([facility]) Vital Signs (Past 12 Hours) Vital Signs Temp Pulse Resp BP Pulse Ox 06/21/21 07:00 36.8 C 79 20 107/69 94 06/21/21 03:37 37.0 C 84 16 109/65 94 06/20/21 22:54 36.8 C 73 16 121/75 93
[2021-06-21] MEDS: NICOTINE 2 MG PRN ×2 (13:47→17:55)
[2021-06-21] MEDS: UMECLIDINIUM/VILANTEROL 62.5/25MCG 7 PUFFS/INHALER INH SCH (20:02)
[2021-06-21] MEDS: DOCUSATE SODIUM/SENNA 50/8.6MG TAB PO SCH (20:03)
[2021-06-22] MEDS: POLYETHYLENE (MIRALAX) 17 GM PACK PO SCH ×5 (00:26→21:52)
[2021-06-22] MEDS: oxyCODONE HCL IR 5 MG TAB (IMMEDIATE RELEASE) PO PRN ×4 (02:24→22:49)
[2021-06-22] MEDS ORDERED: bisacodyL 10 MG SUPP PR PRN (08:00)
[2021-06-22] MEDS: LOSARTAN POTASSIUM 50 MG TAB PO SCH (08:12)
[2021-06-22] MEDS: dexAMETHasone 8 MG in SYRINGE 0 ML IV SCH (08:12)
[2021-06-22] MEDS: METOPROLOL SUCC 25MG EXT REL TAB PO SCH (08:13)
[2021-06-22] MEDS: DRONEDARONE HCL 400 MG TAB PO SCH ×2 (08:13→21:48)
[2021-06-22] MEDS: ASPIRIN 81 MG ECTAB PO SCH (08:14)
[2021-06-22] MEDS: NICOTINE 2 MG PRN (08:58)
--- NOTE | 2021-06-22 11:49 | Orthopedic Progress Note ---
Date of Service June 22, 2021 Assessment & Plan (1) Lumbar stenosis with neurogenic claudication: Plan: At this time we will continue physical therapy monitor JONH output hopefully discharge home tomorrow afternoon. Admission and Anticipated Discharge Date Admission Date: June 20, 2021 Subjective Back pain controlled leg symptoms markedly improved today. She is been ambulating halls without difficulty. Physical Exam Physical Exam: Patient is sitting in chair. She is comfortable. Is good strength testing. Results & Data ([facility]) Vital Signs (Past 12 Hours) Vital Signs Temp Pulse Resp BP Pulse Ox 06/22/21 07:00 37.0 C 88 20 119/77 95
--- NOTE | 2021-06-22 17:26 | Hospitalist Progress Note ---
Date of Service June 21, 2021 late entry , pt was seen approx 6 pm on 06/21/21 Assessment & Plan (1) Lumbar stenosis with neurogenic claudication: Plan: -recovering well from back surgery Continue PT OT, appreciate input from orthopedics (2) CAD (coronary artery disease): Plan: - S/p cardiac stenting, continue asa 81 mg daily, metoprolol succinate 12.5 mg daily, losartan 50 mg daily No complaint of chest pain no shortness of breath (3) Mild aortic stenosis: Plan: - Chronic, stable (4) Chronic obstructive pulmonary disease: Plan: - Continue Anoro Ellipta, albuterol prn - Encourage smoking cessation (5) Pulmonary embolism: Plan: - Hx of such following previous back surgery. Also with hx of DVT. Pt reports family with genetic clotting disorder but cannot confirm what it is. Reports ne eds for being on life long anticoagulation. She denies being formally tested for genetic clotting disorder. -l defer to orthopedics when resuming anticoagulation (6) Tobacco use: Plan: - Cessation encouraged. Pt brought home nicotine lozenges from home. Will ask pharmacy to verify and then can use prn for smoking cessation. Pt currently smokes 1/2 ppd, down from 1.5 ppd. (7) Obesity: Plan: - BMI of 35.4, encourage diet and exercise. DVT ppx: - teds, scds, baby aspirin CODE: Full code Dispo: Discharge home per primary team Admission and Anticipated Discharge Date Admission Date: June 20, 2021 Subjective Patient reports still some back pain worse with activity, No chest pain or shortness of breath no fever or chills Review of Systems Review of Systems: All systems reviewed & are unremarkable except as noted in Subjective Physical Exam Constitutional: WD/WN, vitals as above Eyes: PERRL, conjunctivae normal, anicteric sclerae ENMT: external ear and nose normal, oropharynx normal Neck: trachea midline, no thyromegaly Respiratory: normal respiratory effort, lungs clear to auscultation Cardiovascular: RRR, no murmur, no edema Gastrointestinal (Abdomen): normal bowel sounds, soft, nontender, no hepatosplenomegaly Musculoskeletal: status post back surgery, JONH drain present Skin: no rashes, warm and dry Neurologic: PERRL, EOMI, accommodation nl, no face palsy, no dysarthria Psychiatric: A+Ox3, euthymic affect Results & Data Results & Data ([facility]) Vital Signs (Past 12 Hours) Vital Signs Temp Pulse Resp BP Pulse Ox 06/22/21 15:00 36.7 C 88 20 133/80 93 06/22/21 07:00 37.0 C 88 20 119/77 95
[2021-06-22] MEDS: UMECLIDINIUM/VILANTEROL 62.5/25MCG 7 PUFFS/INHALER INH SCH (21:48)
[2021-06-22] MEDS: DOCUSATE SODIUM/SENNA 50/8.6MG TAB PO SCH (21:48)
--- NOTE | 2021-06-22 22:16 | Hospitalist Progress Note ---
Date of Service June 22, 2021 Assessment & Plan (1) Lumbar stenosis with neurogenic claudication: Plan: -recovering well from back surgery back pain has improved significantly orthopedics following pt has JONH drain present , has minimum serosanguineous drainage ordered for H&H check in am Constipation : no bowel movement since back surgery on scheduled bowel regimen with miralax pt reports baseline chronic constipation with BM every 2-3 days no abdominal pain or nausea cont bowel regimen , increase activty (2) CAD (coronary artery disease): Plan: - S/p cardiac stenting, continue asa 81 mg daily, metoprolol succinate 12.5 mg daily, losartan 50 mg daily No complaint of chest pain no shortness of breath (3) Mild aortic stenosis: Plan: - Chronic, stable (4) Chronic obstructive pulmonary disease: Plan: - Continue Anoro Ellipta, albuterol prn - Encourage smoking cessation (5) Pulmonary embolism: Plan: - Hx of such following previous back surgery. Also with hx of DVT. Pt reports family with genetic clotting disorder but cannot confirm what it is. Reports needs for being on life long anticoagulation. She denies being formally tested for genetic clotting disorder. -l defer to orthopedics when resuming anticoagulation per ortho pt will be discharged on Lovenox sc dose (6) Tobacco use: Plan: - Cessation encouraged. Pt brought home nicotine lozenges from home. Will ask pharmacy to verify and then can use prn for smoking cessation. Pt currently smokes 1/2 ppd, down from 1.5 ppd. (7) Obesity: Plan: - BMI of 35.4, encourage diet and exercise. DVT ppx: - teds, scds, baby aspirin CODE: Full code Dispo: Discharge home per primary team Admission and Anticipated Discharge Date Admission Date: June 20, 2021 Subjective Follow up visit for medicine consult for orthopedics service Pt is s/p spinal decompression surgery doing much better today back pain has improved significantly with no radiation of pain down to legs walked on the hallway no bowel movement yet , no complain of abdominal pain , no nausea or vomiting No chest pain or shortness of breath no fever or chills Physical Exam Constitutional: WD/WN, vitals as above Eyes: PERRL, conjunctivae normal, anicteric sclerae ENMT: external ear and nose normal, oropharynx normal Neck: trachea midline, no thyromegaly Respiratory: normal respiratory effort, lungs clear to auscultation Cardiovascular: RRR, no murmur, no edema Gastrointestinal (Abdomen): normal bowel sounds, soft, nontender, no hepatosplenomegaly Skin: no rashes, warm and dry Neurologic: PERRL, EOMI, accommodation nl, no face palsy, no dysarthria Psychiatric: A+Ox3, euthymic affect Results & Data Results & Data ([facility]) Vital Signs (Past 12 Hours) Vital Signs Temp Pulse Resp BP Pulse Ox 06/22/21 15:00 36.7 C 88 20 133/80 93
[2021-06-22] MEDS: SODIUM CHLORIDE 0.9% 1000ML 1,000 ML IV SCH (22:57)
[2021-06-23] MEDS: POLYETHYLENE (MIRALAX) 17 GM PACK PO SCH ×2 (00:33→12:24)
[2021-06-23] MEDS: oxyCODONE HCL IR 5 MG TAB (IMMEDIATE RELEASE) PO PRN ×2 (04:14→12:24)
[2021-06-23 06:44] LABS: Hematocrit (blood only) 33.9 % (37-47); Hemoglobin 11.1 g/dL (12.0-16.0)
[2021-06-23] MEDS ORDERED: WARFARIN SOD 5 MG TAB PO ONE (07:39)
[2021-06-23] MEDS: ASPIRIN 81 MG ECTAB PO SCH (09:29)
[2021-06-23] MEDS: LOSARTAN POTASSIUM 50 MG TAB PO SCH (09:30)
[2021-06-23] MEDS: DRONEDARONE HCL 400 MG TAB PO SCH (09:30)
[2021-06-23] MEDS: dexAMETHasone 8 MG in SYRINGE 0 ML IV SCH (09:31)
[2021-06-23] MEDS: METOPROLOL SUCC 25MG EXT REL TAB PO SCH (09:37)
--- NOTE | 2021-06-23 12:16 | Discharge Summary ---
Date of Service June 23, 2021 Admission HPI Per Admitting Provider 6-year-old female known to me the presents with a cough persistent back and leg pain. Failing course of nonoperative care is here for surgical invention. Principal Diagnosis Lumbar spinal stenosis with neurogenic claudication Discharge Data Allergies Allergy/AdvReac Type Severity Reaction Status Date / Time Penicillins Allergy Unknown Hives Verified 06/05/21 08:46 Consultations 06/20/21 16:02 Consult Hospitalist Routine Procedures Performed Operation Date: 06/20/21 11:35 Actual Procedures p L2-L4 Decompression Fusion, Spinal Cord Monitoring - Otoniel Roberson DO p L4-L5 Hardware Removal - Otoniel Roberson DO Ordered Studies 06/20/21 11:35 FL lumbar spine 2-3V Routine Hospital Course (1) Lumbar stenosis with neurogenic claudication: Patient went lumbar decompression fusion tolerated was taken to orthopedic for postop labor postop day 1 she was up and ambulating rest the postop day #2 on postop day 3 pain was well controlled JONH drain decreasing probably. Excellent strength testing. Substance use discharge home. Discharge orders and instructions found the chart for further review. Total Time Total Time Spent Total Time Spent (In Minutes): 20 minutes Discharge Plan Discharge Items Patient Disposition: Home - Self-Care Reason For Visit: Spinal Stenosis, Lumbar Region with Neurogenic Cl Discharge Diagnosis: Lumbar spinal stenosis with neurogenic claudication Activity: As commented below Non-emergency contact: Primary Care Provider Call non-emergency contact if: you have any medication questions Follow-up/Referrals: Alejandro Maradiaga [Primary Care Provider] - Diet: Regular Addtl Attending Provider Instructions: ACTIVITY RECOMMENDATIONS: SELF CARE INSTRUCTIONS AFTER THORACIC/LUMBAR FUSIONS 1. You may walk to your tolerance. It is good exercise for your legs and back. Expect some back and intermittent leg aches and pains. 2. You may perform "counter-top" level activities (make a sandwich, elisa with a project, etc.). 3. No bending or lifting of more than 10 pounds or back twisting of any nature (roll like a log when turning in bed). 4. You may ride in a car for 20-30 minutes at a time. No driving until after your first visit with your doctor. 5. Frequent changes of position and restricting sitting to 30 minutes at a time will help limit the amount of back spasms and stiffness you may experience. 6. You may discontinue the use of ambulatory aids (cane, crutches, etc.) once your strength and confidence allow. 7. You may floor service worker spring the shower and let water strike your incision when you arrive home at least once daily. Do not take a tub bath, sit in a hot tub or go into a swimming pool until after your first recheck in the office. SPECIAL CARE INSTRUCTIONS: VERY IMPORTANT TO READ AND REVIEW A. Your surgical incision has been closed with a cosmetic suture under the skin that will dissolve in about 6 weeks. In 14 days, you can use a pair of clean scissors and cut the suture that is left outside of the skin at the ends of your incision. 1. The small skin tapes can be removed 7 days after surgery if they have not fallen off by that point. 2. You may keep the wound open to air as much as possible to promote healing after post-op day number 5 unless told otherwise by your doctor. 3. If you think the wound looks like it is becoming infected (redness or worsening drainage) and/or you are experiencing fever, chill or worsening back pain and muscle spasms, contact the office so that we may evaluate you as soon as possible. B. Complications are uncommon, but please contact us if you have any signs or symptoms of: 1. wound infection (fever higher than 102.5 degrees F, redness, separation of wound, drainage, or increasing pain from the incision) 2. blood clots in legs (pain, swelling, redness and warmth in legs) 3. urinary tract infection (fever higher than 102.5 degrees F, burning upon urination or increased frequency of urination) 4. nerve problems (inability to walk on your toes or heels, numbness, loss of bowel or bladder control) 5. any other symptoms that concern you C. Please call the office at if you have any concerns or questions about your operation or recovery. D. No smoking! Smoking drastically decreases the chance of a solid fusion. E. Do not take any anti-inflammatory medications (Indocin, Advil, Motrin, Aspirin, Naprosyn, etc.) as these may inhibit the chance of a solid fusion. Tylenol is okay to take for pain. MANAGING PAIN AFTER SPINAL SURGERY 1. Narcotic medication is intended for short-term use and will be provided for surgical pain. Surgical pain usually lasts for a period of 4-6 weeks. Narcotic medication includes Percocet, Vicodin, Darvocet, Tylenol #3 or Lortab. 2. Longer-term pain is more appropriately treated with non-narcotic medication such as Tylenol ES. 3. Muscle spasm is not appropriately treated with narcotics. Muscle relaxers such as Soma, Flexeril or Skelaxin can be used along with Tylenol ES. 4. Remember that we all live with some "aches and pains". This is not unusual or uncommon after an injury or as we get older. a. Back pain is expected and may include muscle spasms for 4 to 6 weeks after surgery. The pain should gradually improve. If the pain worsens for no apparent reason, please contact the office. b. Intermittent leg pain may also be experienced and should not be concerned about unless it worsens for no apparent reason. If so, please contact the office. 5. We will provide appropriate medication within the normal guidelines of their prescribed use. We will also be very cautious and aware of potential abuse and extended duration of patients' medication needs. a. Pain medications are for your comfort and to assist with sleep and rest so that the tissue can heal. They are not provided in order to return to normal activity and should not be used through the day. To do so or worsening pain at night can result from ongoing tissue damage and development of tolerance to the prescribed medicine. 6. Please allow 2-3 days to process refills. Prescriptions will not be mailed but must be picked up at the office. FOLLOW UP VISIT: Keep your scheduled follow-up appointment. Any questions, please call the office at . Pending Studies at Discharge: No Stand-Alone Forms: [facility], Smoking Cessation Medications and DC Order Prescriptions: New tramadol 50 mg tablet 50 mg PO Q6H PRN (Reason: pain, moderate) Qty: 30 RF: 0 oxycodone 5 mg tablet 5 mg PO Q6H PRN (Reason: pain, severe) Qty: 30 RF: 0 Continued losartan 50 mg Tablet 50 mg PO QAM RF: 0 aspirin 81 mg Tablet,Delayed Release (Dr/Ec) 81 mg PO QAM RF: 0 acetaminophen 650 mg Tablet Extended Release 1,300 mg PO Q12H PRN (Reason: Pain) RF: 0 warfarin [Jantoven] 3 mg Tablet 3 - 4.5 mg PO UD RF: 0 metoprolol succinate [Toprol XL] 25 mg Tablet Extended Release 24 Hr 12.5 mg PO QAM RF: 0 Multaq 400 mg Tablet 400 mg PO BID RF: 0 Anoro Ellipta 62.5-25 mcg/actuation Blister With Device 1 inh INHALATION HS RF: 0 albuterol sulfate 90 mcg/actuation Hfa Aerosol Inhaler 2 puff INHALATION Q6H PRN (Reason: Wheezing) RF: 0 nitroglycerin [Nitrostat] 0.4 mg Tablet, Sublingual 0.4 mg sublingual UNKNOWN RF: 0 Discharge Orders: Discharge Order (Routine); Ordered 06/23/21 Ordered By: Otoniel Roberson Admission Data Admit Date/Time: 06/20/21 14:25 Attending Provider: Otoniel Roberson Admit Provider: Otoniel Roberson Primary Care Provider: Alejandro Maradiaga Other Providers: Lyudmila Reilly
== END 2021-06-23 13:40 | disposition home or self-care (01) | DRG 455 ==
LOC: ASU 09:53 → 3E 14:25